=== PATIENT | male | born 1955 | race Caucasian/White ===

== ENCOUNTER → 2019-08-29 | Outpatient (CLI) | payer OTHER ==
[~2019-08-29] VITALS: Ht 175.3 cm; Wt 81.6 kg
[~2019-08-29] MED LIST: BENICAR20 MG PO; TOPROL XL50 MG PO
--- NOTE | ~2019-08-29 | P ---
[facility] [place] [address] PROCEDURE REPORT Name: MIMA RAO Room #: [facility]#: [id number] Admission: 08/29/19 Attend Phys: Rolo Eubanks Discharge: Date of : 59 Report #: [id number] THIS REPORT FOR: //name// CC: Rolo Negro MD DATE OF SERVICE: 08/29/2019 PROCEDURE PERFORMED: Colonoscopy. HISTORY OF PRESENT ILLNESS: The patient is a 64-year-old male who presents today for routine screening colonoscopy. Last colonoscopy was approximately 10 years ago and reportedly normal. The patient denies any symptoms. No family history of colon cancer. DESCRIPTION OF PROCEDURE: The risks and benefits of the procedure were explained to the patient, those risks including but not limited to bleeding, perforation and the risk of sedation. He understood these risks and gave informed consent. Sedation was given using propofol per Anesthesia. Next, a digital rectal exam was initially performed, which was normal. Next, using a standard Olympus colonoscope, the scope was placed in the patient's anus and advanced under direct vision to the cecum. The overall prep was excellent. The cecum and ileocecal valve were normal in appearance throughout the entire ascending, transverse, descending and sigmoid colon. Multiple diverticula were noted, otherwise normal. No evidence of inflammation. The rectal mucosa was normal. On retroflexion, no abnormalities were noted. The scope was then withdrawn and the procedure terminated. The patient tolerated the procedure well. IMPRESSION: 1. Pandiverticulosis. 2. Otherwise, normal colonoscopy. RECOMMENDATIONS: 1. High-fiber diet. 2. Repeat colonoscopy in 10 years. Thank you for allowing me to participate in his care. By: [id number] Rolo Feilds MD /nt
== END | disposition home or self-care (01) ==
LOC: GI 07:35
DX: Z12.11 Encounter for screening for malignant neoplasm of colon (principal); K57.30 Diverticulosis of large intestine without perforation or abscess without bleeding; I10 Essential (primary) hypertension; Z98.890 Other specified postprocedural states; Z79.899 Other long term (current) drug therapy
CPT/HCPCS: 62110; 62900